=== PATIENT | female | born 1985 | race Caucasian/White ===

== ENCOUNTER → 2016-06-28 | Outpatient (CLI) | payer OTHER ==
[~2016-06-28] MED LIST: ACET50TA PO; IBUP60TA PO; LABE20TAB PO; PRENTAB7 PO
[2016-06-28 16:04] LABS: ALT/SGPT 27 U/L (12-78); AST/SGOT 10 U/L (15-37); BILIRUBIN,TOTAL 0.2 MG/DL (0.2-1.0); CREATININE FOR GFR 0.67 MG/DL (0.55-1.02); GLOMERULAR FILTRATION RATE > 60.0 (>60); URIC ACID 4.2 MG/DL (2.6-6.0)
[2016-06-28 20:20] LABS: CREATININE CLEARANCE, URINE 170.4 ML/MIN (75-115); CREATININE, SERUM 0.7 MG/DL (0.6-1.0)
== END ==
LOC: M LAB 14:42
PROVIDERS: ATTEND Advanced Practice Midwife
DX: Z34.81 Encounter for supervision of other normal pregnancy, first trimester (principal)

== ENCOUNTER → 2016-07-28 | Outpatient (CLI) | payer OTHER | LOC: M SMT 10:09 | PROVIDERS: ATTEND Advanced Practice Midwife | DX: Z13.79 Encounter for other screening for genetic and chromosomal anomalies (principal) ==

== ENCOUNTER → 2016-11-04 | Outpatient (CLI) | payer OTHER ==
[2016-11-04 09:53] LABS: BASO % 0.1 % (0.0-1.0); EOS # 0.1 K/mm3 (0.0-0.50); LARGE UNSTAINED CELL # 0.1 K/mm3 (0.0-0.4); LARGE UNSTAINED CELL % 1.1 % (0.0-4.0); LYMPH % 21.9 % (24.0-44.0); MEAN CORPUSCULAR HEMOGLOBIN 31.1 pg (27.0-33.0); MEAN CORPUSCULAR HGB CONC 34.5 g/dl (32.0-36.5); MEAN CORPUSCULAR VOLUME 90.2 fl (80.0-96.0); MONO # 0.3 K/mm3 (0.0-0.8); MONO % 3.1 % (0.0-5.0); NEUTROPHILS # 6.7 K/mm3 (1.8-7.7); NEUTROPHILS % 72.6 % (36.0-66.0); PLATELET COUNT, AUTOMATED 278 k/mm3 (150-450); RED CELL DISTRIBUTION WIDTH 13.4 % (11.5-14.5); WHITE BLOOD COUNT 9.2 K/mm3 (4.0-10.0)
== END ==
LOC: M LAB 08:39
PROVIDERS: ATTEND Specialist
DX: Z34.82 Encounter for supervision of other normal pregnancy, second trimester (principal)

== ENCOUNTER → 2017-01-04 | Outpatient (REF) | payer OTHER ==
[~2017-01-04] MED LIST changes: +ASPI81CH32 PO; +COLA100C5 PO; +IBUP-1114 PO; +MOM30SS PO; +TUMS500C PO
== END ==
LOC: M LAB REF 13:00
PROVIDERS: ATTEND Specialist
DX: Z34.83 Encounter for supervision of other normal pregnancy, third trimester (principal)

== ENCOUNTER 2017-01-18 12:09 | Inpatient (IN) | payer OTHER ==
[2017-01-18] VITALS (11 sets, daily range): BP systolic 121–140; BP diastolic 66–78
[~2017-01-18] VITALS: Ht 160 cm; Wt 104.0 kg
[~2017-01-18 12:09] MED LIST changes: -ASPI81CH32 PO; -COLA100C5 PO; -IBUP-1114 PO; -MOM30SS PO; -TUMS500C PO
[2017-01-18] MEDS ORDERED: TUMS500C PO (12:17)
[2017-01-18] MEDS ORDERED: ASPI81CH32 PO (12:18)
[2017-01-18] MEDS ORDERED: PENICILLIN G POTASSIUM IV 5 MU in D5W MINI-BAG PLUS 100 ML IV STA (13:24)
[2017-01-18 13:45] LABS: MEAN CORPUSCULAR HEMOGLOBIN 31.2 pg (27.0-33.0); MEAN CORPUSCULAR HGB CONC 34.5 g/dl (32.0-36.5); MEAN CORPUSCULAR VOLUME 90.5 fl (80.0-96.0); RED CELL DISTRIBUTION WIDTH 14.5 % (11.5-14.5); WHITE BLOOD COUNT 8.5 K/mm3 (4.0-10.0)
[2017-01-18] MEDS: miSOPROStol 50 MCG 1/2 TAB (S0191) SL SCH ×2 (13:48→18:02)
--- NOTE | 2017-01-18 14:07 | HPE ---
DATE OF ADMISSION: 01/18/2017 CHIEF COMPLAINT: Induction of labor. HISTORY OF PRESENT ILLNESS: The patient is a 30-year-old, 2, para 0-1-0-0 at 38 weeks gestation with an estimated due date of 02/01/2017, confirmed by first trimester ultrasound dated 06/24/2016. She presents for induction of labor. The patient denies contractions, leakage of fluid, bleeding, or discharge. She states that she is feeling the baby move. Last intercourse was in September. LABORATORIES: Blood type is A positive, total weight gain was 19 pounds during this , blood pressures have been ranging from 114 to 142 systolic over 60 to 84 diastolic in the office. She is Group B streptococcus (GBS) positive, rubella immune, HIV negative, Gonorrhea and Chlamydia negative, hepatitis B antigen negative, hepatitis C nonreactive, VDRL nonreactive. Diabetes screen was 123. Urine culture showed no growth. [place] testing showed no abnormalities, female fetus. Last Pap was 04/29/2014 and was within normal limits. OB ULTRASOUND: From 12/30/2016 showed a left sided placenta without abruption. PAST OBSTETRICAL HISTORY: In 2016 she delivered a male fetus at 31 weeks, complicated by eclampsia, intrauterine demise. MEDICATIONS: - vitamin MEDICAL HISTORY: None. PAST SURGICAL HISTORY: None. ALLERGIES: None. SOCIAL HISTORY: The patient is . Denies tobacco, alcohol or drug use. PHYSICAL EXAMINATION: VITAL SIGNS: Temperature is 98.5, pulse is 96, respiratory rate is 18, blood pressure is 139/75. ABDOMEN: Gravid. Sterile vaginal examination: Closed/thick/high. heart rate: 145 to 150 beats per minute with moderate variability, accelerations, no decelerations. Category 1 tracing. ASSESSMENT AND PLAN: 1. Intrauterine at 38 weeks who presents for induction of labor. Admit to labor and delivery with routine laboratories and orders. Reassuring maternal and status. External monitoring tocodynamometer. 2. GBS positive. Penicillin has been ordered. 3. Status induction of labor with cervical ripening via Cytotec 50 mcg sublingually. 4. Anticipate spontaneous vaginal delivery. My preceptor for this patient encounter was Dr. Nelson. The preceptor was physically present in the building during the encounter and was fully available. As needed, all aspects of the patient interview, examination, medical decision making process, and medical care plan development were reviewed and approved by the preceptor. The preceptor is aware and concurs with the plan as stated in the body of this note and will attest to such by his/her cosignature.
[2017-01-18 14:08] LABS: ALT/SGPT 16 U/L (12-78); AST/SGOT 10 U/L (15-37); BILIRUBIN,TOTAL 0.2 MG/DL (0.2-1.0); CREATININE FOR GFR 0.61 MG/DL (0.55-1.02); GLOMERULAR FILTRATION RATE > 60.0 (>60); URIC ACID 5.6 MG/DL (2.6-6.0)
[2017-01-18] MEDS ORDERED: PENICILLIN G POTASSIUM IV 2.5 MU in D5W 100 ML IV SCH (17:30)
[2017-01-18] MEDS ORDERED: PROMETHAZINE INJ 25 MG/ML VIAL (J2550) IV PRN (23:45)
[2017-01-18] MEDS ORDERED: BUTORPHANOL 2 MG/ML INJ (J0595) IV ONE (23:45)
[2017-01-19] VITALS (27 sets, daily range): BP systolic 116–141; BP diastolic 55–96
[2017-01-19] MEDS: miSOPROStol 50 MCG 1/2 TAB (S0191) SL SCH (00:03)
[2017-01-19] MEDS ORDERED: PENICILLIN G POTASSIUM IV 5 MU in D5W MINI-BAG PLUS 100 ML IV ONE (06:00)
[2017-01-19] MEDS ORDERED: FENTANYL 2MCG/ML ROPIVACAINE 0.2% IN 0.9% NACL 200ML IVBAG As Ordered ONE (07:40)
[2017-01-19] MEDS ORDERED: ePHEDrine SULFATE 25 MG/5 ML(5MG/ML) SYRINGE IV PRN (08:45)
[2017-01-19] MEDS ORDERED: EPIDURAL/PCA KEYS XX PRN (08:45)
[2017-01-19] MEDS ORDERED: REFRIGERATOR IV KEYS XX PRN (08:45)
[2017-01-19] MEDS ORDERED: NALOXONE INJ 0.4 MG/1 ML VIAL (J2310) IV PRN (08:45)
[2017-01-19] MEDS ORDERED: ONDANSETRON 4MG/2ML VIAL (J2405) IV PRN (08:45)
[2017-01-19] MEDS ORDERED: FENTANYL/ROPIVACAINE/NACL BAG 200 ML EPIDURAL SCH (08:45)
[2017-01-19] MEDS ORDERED: LACTATED RINGER'S 1000 ML IV PRN (08:45)
[2017-01-19] MEDS ORDERED: EPIDURAL COMMENT XX SCH (08:45)
[2017-01-19] MEDS ORDERED: diphenhydrAMINE INJ 50MG/ML VIAL (J1200) IV PRN (08:45)
[2017-01-19] MEDS ORDERED: MEASLES,MUMPS,RUBELLA VACCINE INJ (MMR-II) (90707) SC SCH (09:00)
[2017-01-19] MEDS ORDERED: OXYTOCIN DRIP 30 UNITS in APPROPRIATE DILUENT 1 EA IV SCH (09:00)
[2017-01-19] MEDS: PRENATAL VITAMINS CHEWABLE TABLET PO SCH (09:00)
[2017-01-19] MEDS ORDERED: RHOGAM 300 MCG (1500 IU) INJ (J2790) IM SCH (09:00)
[2017-01-19] MEDS ORDERED: PENICILLIN G POTASSIUM IV 2.5 MU in D5W 100 ML IV SCH (10:00)
[2017-01-19 11:58] LABS: CORD GAS ABE A -4.2; CORD GAS ABE V -2.6; CORD GAS O2 SAT A 32.5 %; CORD GAS O2 SAT V 43.8 %; CORD GAS PCO2 A 55.9 mmHg; CORD GAS PCO2 V 47.8 mmHg; CORD GAS PH A 7.251 UNITS; CORD GAS PH V 7.319 UNITS; CORD GAS PO2 A 17.6 mmHg; CORD GAS PO2 V 19.3 mmHg; CORD GAS SBC A 19.3 MEQ/L; CORD GAS SBC V 20.9 MEQ/L; CORD GAS TCO2 A 25.7 MEQ/L; CORD GAS TCO2 V 25.5 MEQ/L
--- NOTE | 2017-01-19 12:49 | DN ---
DATE OF DELIVERY: 01/19/2017 TIME OF : 1141 hours. GENDER: Female. SCORES: 9 and 9. ANESTHESIA: Epidural. ESTIMATED BLOOD LOSS: 300 mL. LACERATION: 1st-degree midline laceration. COUNTS: Five laparotomy sponges accounted for prior to and after delivery, as well as two needles and one suture. Three sharps removed from the delivery field. CORD GASES: Arterial pH 7.251, base excess - 4.2, venous pH 7.319, base excess -2.6. DELIVERY NOTE: On 01/19/2017 at 1142 hours, this patient, this 30-year-old G2, now P1, had a spontaneous vaginal delivery of a liveborn female . scores 9 and 9. Weight was 3570 grams or 7 pounds 14 ounces. Head was OA and delivered over a 1st-degree midline laceration, followed by delivery of the left anterior shoulder. This was followed by delivery of the right posterior shoulder and corpus. The baby delivered with meconium. The cord was then clamped times two and cut by the father of the baby under my direction. The was placed on mother's chest for immediate bonding. Cord gases and cord blood were obtained. Placenta delivered at 1152 grossly intact. A mixed bag of 500 mL normal saline with 30 units of Pitocin was then bolused, along with uterine massage. The uterus was firm. On inspection, there was a 1st-degree midline laceration with no further extension, which was repaired with a #3-[address]-1 needle. On reinspection, the cervix, vagina, and perineum were grossly intact and hematostatic. Mother and baby are recovering in stable condition. The couple have decided to name their daughter, Tavon Yanez. My preceptor for this patient encounter was Jennifer Nelson MD. The preceptor was physically present in the building during the encounter and was fully available. As needed, all aspects of the patient interview, examination, medical decision making process, and medical care plan development were reviewed and approved by the preceptor. The preceptor is aware and concurs with the plan as stated in the body of this note and will attest to such by his/her cosignature. NEETU
[2017-01-19] MEDS ORDERED: METHYLERGONOVINE MALEATE 0.2 MG TAB PO PRN (13:15)
[2017-01-19] MEDS ORDERED: MOM 30ML SUSPENSION UDC PO PRN (13:15)
[2017-01-19] MEDS ORDERED: ANUSOL HC CREAM 30GM TOP PRN (13:15)
[2017-01-19] MEDS ORDERED: DOCUSATE SODIUM 100 MG CAP PO PRN (13:15)
[2017-01-19] MEDS ORDERED: DIBUCAINE 1% OINTMENT 30GM TOP PRN (13:15)
[2017-01-19] MEDS: IBUPROFEN 800 MG TAB PO PRN ×2 (14:27→22:59)
[2017-01-19] MEDS: ACETAMINOPHEN 500 MG TAB PO PRN (16:07)
[2017-01-20] MEDS: ACETAMINOPHEN 500 MG TAB PO PRN ×2 (05:30→20:46)
[2017-01-20 06:00] VITALS: BP 120/57
[2017-01-20] MEDS: PRENATAL VITAMINS CHEWABLE TABLET PO SCH (08:21)
[2017-01-20 17:46] VITALS: BP 126/74
[2017-01-20] MEDS: IBUPROFEN 800 MG TAB PO PRN (18:15)
[2017-01-21] MEDS: IBUPROFEN 800 MG TAB PO PRN ×2 (04:39→15:16)
[2017-01-21 06:15] VITALS: BP 129/72
[2017-01-21] MEDS: PRENATAL VITAMINS CHEWABLE TABLET PO SCH (08:56)
[2017-01-21] MEDS ORDERED: COLA100C5 PO (14:59)
[2017-01-21] MEDS ORDERED: ACET50TA PO (14:59)
[2017-01-21] MEDS ORDERED: MOM30SS PO (14:59)
[2017-01-21] MEDS ORDERED: IBUP-1114 PO (14:59)
[2017-01-21] MEDS: ACETAMINOPHEN 500 MG TAB PO PRN (18:27)
== END 2017-01-21 18:39 | disposition home or self-care (01) | DRG 560 ==
LOC: M LDI 12:09 → M OBS 01-19 15:39
PROVIDERS: ADMIT Obstetrics & Gynecology; ATTEND Obstetrics & Gynecology
PROC: 3E0P7GC Introduction of Other Therapeutic Substance into Female Reproductive, Via Natural or Artificial Opening (ICD-10-PCS; 2017-01-18)
PROC: 3E0134Z Introduction of Serum, Toxoid and Vaccine into Subcutaneous Tissue, Percutaneous Approach (ICD-10-PCS; principal; 2017-01-19)
PROC: 0HQ9XZZ Repair Perineum Skin, External Approach (ICD-10-PCS; 2017-01-19)
DX: O13.4 Gestational [pregnancy-induced] hypertension without significant proteinuria, complicating childbirth (principal); O99.820 Streptococcus B carrier state complicating pregnancy; O70.0 First degree perineal laceration during delivery; Z37.0 Single live birth; Z3A.38 38 weeks gestation of pregnancy

== ENCOUNTER → 2021-01-08 | Outpatient (REF) | payer BC, OTHER ==
[~2021-01-08] MED LIST changes: -ACET50TA PO; +ASPI81CH33 PO; +COLA100C5 PO; +IBUP-1114 PO; +IBUP600T42 PO; -IBUP60TA PO; +MAPA500T2 PO; +MOM30SS PO; +TUMS500C PO
== END ==
LOC: M SFHCWAGY 13:20
PROVIDERS: ATTEND Advanced Practice Midwife
DX: Z12.4 Encounter for screening for malignant neoplasm of cervix (principal)
CPT/HCPCS: 87624; G0123

== ENCOUNTER → 2025-06-11 | Outpatient (CLI) | payer OTHER ==
[2025-06-11 17:14] LABS: BASO # 0.1 10^3/uL (0.0-0.2); BASO % 0.5 % (0.0-1.0); EOS # 0.4 10^3/uL (0.0-0.5); EOS % 3.7 % (0.0-3.0); LYMPH # 3.1 10^3/uL (1.5-5.0); LYMPH % 32.3 % (24.0-44.0); MONO # 0.5 10^3/uL (0.0-0.8); MONO % 5.0 % (2.0-8.0); NEUTROPHILS # 5.6 10^3/uL (1.5-8.5); NEUTROPHILS % 58.3 % (36.0-66.0); PLATELET COUNT, AUTOMATED 291 10^3/uL (150-450)
[2025-06-11 17:43] LABS: ALT/SGPT 15 U/L (7.0-40); AST/SGOT 13 U/L (<34); CALCIUM LEVEL 9.0 MG/DL (8.5-10.1); CARBON DIOXIDE LEVEL 27 MMOL/L (20-31); CHLORIDE LEVEL 103 MMOL/L (98-107); CREATININE FOR GFR 0.84 MG/DL (0.55-1.30); GLOMERULAR FILTRATION RATE > 90.0 (>60); POTASSIUM SERUM 4.1 MMOL/L (3.5-5.1); SODIUM LEVEL 139 MMOL/L (136-145)
[2025-06-11 17:45] LABS: FREE T4 1.27 NG/DL (0.89-1.76)
[2025-06-11 17:48] LABS: THYROID PEROXIDASE ANTIBODY 32 U/ML (<60.0)
== END ==
LOC: M LAB 16:48
PROVIDERS: ATTEND Nurse Practitioner Family
DX: F90.9 Attention-deficit hyperactivity disorder, unspecified type (principal); F32.A Depression, unspecified